=== PATIENT | female | born 2005 | race Caucasian/White ===

== ENCOUNTER 2025-01-26 13:56 | Emergency (ER) | payer MEDICAID ==
[~2025-01-26] VITALS: Ht 165.1 cm; Wt 60.0 kg
[2025-01-26 14:04] VITALS: O2SAT 99
[2025-01-26 14:15] VITALS: BP 111/74; PULSE 98; RESP 18; TEMP 36.9; O2SAT 100
[2025-01-26] MEDS ORDERED: BO1 TP (15:26)
[2025-01-26] MEDS: BACITRACIN ZINC OINT UDPKT TOP ONE (15:54)
== END 2025-01-26 16:32 | disposition home or self-care (01) ==
LOC: ER 13:56
DX: S91.201A Unspecified open wound of right great toe with damage to nail, initial encounter (principal); J45.909 Unspecified asthma, uncomplicated; X58.XXXA Exposure to other specified factors, initial encounter; Y93.89 Activity, other specified; Y92.89 Other specified places as the place of occurrence of the external cause; Y99.8 Other external cause status
CPT/HCPCS: 99283; Z7610 ×2